=== PATIENT | male | born 1975 | race Caucasian/White ===

== ENCOUNTER 2016-11-05 08:00 | Outpatient (CLI) | payer BC | END 2016-11-05 08:01 | disposition home or self-care (01) | DX: I10 Essential (primary) hypertension (principal); E55.9 Vitamin D deficiency, unspecified; E03.9 Hypothyroidism, unspecified ==

== ENCOUNTER 2017-01-17 10:50 | Outpatient (CLI) | payer BC | END 2017-01-17 10:51 | disposition home or self-care (01) | DX: E03.9 Hypothyroidism, unspecified (principal) ==

== ENCOUNTER 2017-03-30 12:33 | Outpatient (CLI) | payer BC ==
--- NOTE | 2017-04-01 04:51 | MRI Report ---
EXAM: MRI LUMBAR SPINE WITHOUT CONTRAST EXAM DATE: 03/30/2017 01:21 PM. CLINICAL HISTORY: Sciatica, low back pain, left leg radiculopathy. COMPARISON: Lumbar spine MRI 07/08/2009. TECHNIQUE: Multiplanar, multisequence T1-weighted and fluid-sensitive sequences of the lumbar spine f rom T12 to S2 without contrast. Other: None. FINDINGS: Spinal Cord: The conus terminates at L1. No signal abnormality in the visualized spinal cord. Alignment: Normal. No scoliosis or spondylolisthesis. Bone Marrow: Five [id number]-[id number] lumbar vertebral bodies are assumed. No gross fractures or bone les ions. No bone marrow edema. Disk Levels/Facets: T12-L1: Unremarkable. L1-L2: There is disk desiccation and a mild disk bulge. There is no significant central canal or neur al foraminal narrowing. (Prior small left paracentral disk protrusion has improved.) L2-L3: There is a small central disk protrusion. There is mild central canal narrowing. There is no n eural foraminal narrowing. L3-L4: There is a small central disk protrusion. There is mild facet hypertrophy. There is moderate n arrowing of the left subarticular zone. There is no neural foraminal narrowing. L4-L5: There is a left paracentral/subarticular disk extrusion. This measures 10 mm in AP dimension a nd 12 mm in CC dimension. There is resultant moderate central canal narrowing with severe narrowing o f the left subarticular zone. There is mild bilateral facet hypertrophy. There is no significant neur al foraminal narrowing. L5-S1: Unremarkable. Musculature: Normal. No edema or fatty atrophy. Other: The visualized pelvic cavity is unremarkable. IMPRESSION: 1. L4-L5 disk extrusion with severe narrowing of left subarticular zone (stable stenosis, interval de crease in overall disk size). 2. L3-L4 disk protrusion with moderate narrowing of the left subarticular zone (stable). 3. L2-L3 disk bulge with mild central canal narrowing (interval progression). [facility] Referring Provider Line: [phone] SITE ID: [id number]
== END 2017-03-30 12:34 | disposition home or self-care (01) ==
LOC: DI 12:33
PROVIDERS: ATTEND Nurse Practitioner Family
DX: M51.26 Other intervertebral disc displacement, lumbar region (principal); M51.36 Other intervertebral disc degeneration, lumbar region; M47.896 Other spondylosis, lumbar region
CPT/HCPCS: 72148

== ENCOUNTER 2017-12-03 10:28 | Outpatient (CLI) | payer BC ==
[2017-12-03 17:57] LABS: ALBUMIN 4.2 g/dL (3.2-5.5); ALBUMIN/GLOBULIN RATIO 1.8 (1.0-2.2); ALKALINE PHOSPHATASE 35 IU/L (42-121); ALT ALANINE AMINOTRANSFERASE 18 IU/L (10-60); AST ASPARTATE AMINOTRANSFERASE 18 IU/L (10-42); BILIRUBIN,TOTAL 0.9 mg/dL (0.2-1.0); BUN - BLOOD UREA NITROGEN 17 mg/dL (6-20); CALCIUM 8.9 mg/dL (8.5-10.3); CARBON DIOXIDE - CO2 24 mmol/L (21-32); CHLORIDE 102 mmol/L (101-111); CHOL/HDL RATIO 3.8 (<5.0); CHOLESTEROL 132 mg/dL; CREATININE 0.8 mg/dL (0.6-1.2); GFR - MDRD 106 (>89); GLUCOSE 106 mg/dL (70-100); HDL CHOLESTEROL 35 mg/dL; SODIUM 134 mmol/L (135-145); TOTAL PROTEIN 6.6 g/dL (6.7-8.2)
[2017-12-03 18:06] LABS: THYROID STIMULATING HORMONE < 0.08 uIU/mL (0.34-5.60)
[2017-12-03 19:04] LABS: LDL CHOLESTEROL,DIRECT 88 mg/dL; LDLD/HDL RATIO 2.5 (<3.6)
[2017-12-03 21:07] LABS: FREE T4 (FREE THYROXINE) 0.82 ng/dL (0.58-1.64)
== END 2017-12-03 10:29 | disposition home or self-care (01) ==
LOC: LAB.F 10:28
PROVIDERS: ATTEND Nurse Practitioner Family
DX: I10 Essential (primary) hypertension (principal); E03.9 Hypothyroidism, unspecified
CPT/HCPCS: 36415; 80053; 80061; 83721; 84439; 84443